=== PATIENT | male | born 1980 | race Caucasian/White ===

== ENCOUNTER 2021-08-31 05:52 | Emergency (ER) | payer SELFPAY ==
[~2021-08-31] VITALS: Ht 170.1 cm; Wt 64.9 kg
[2021-08-31 06:25] LABS: BASO # 0.1 10*3/uL (0.0-0.1); BASO % 0.4 % (0.0-1.0); EOS % 0.1 % (1.0-4.0); HEMATOCRIT 44.8 % (42.0-52.0); LYMPH # 0.8 10*3/uL (1.3-4.4); MEAN CELL VOLUME 93.1 fl (80.0-94.0); MEAN CORPUSCULAR HGB 31.4 pg (27.0-31.0); MEAN CORPUSCULAR HGB CONC 33.7 g/dl (33.0-37.0); MEAN PLATELET VOLUME 10.7 fl (9.6-12.3); MONO % 6.4 % (3.0-9.0); NEUT # 13.3 10*3/uL (2.3-7.9); NEUT % 87.7 % (47.0-73.0); PLATELET COUNT AUTOMATED 245 10*3/uL (130-400); RED BLOOD COUNT 4.81 10*6/uL (4.50-5.90); WHITE BLOOD COUNT 15.1 10*3/uL (4.8-10.8)
[2021-08-31 06:42] LABS: ALKALINE PHOSPHATASE 70 U/L (45-117); BUN 21 mg/dl (7-24); CHLORIDE 104 mmol/L (98-107); LIPASE 41 U/L (73-393); SGOT/AST 19 IU/L (3-35); SGPT/ALT 25 U/L (12-78); SODIUM 137 mmol/L (136-145); TOTAL PROTEIN 7.9 gm/dL (6.4-8.2)
[2021-08-31] MEDS ORDERED: NAPROXEN250 MG PO (08:47)
[2021-08-31] MEDS ORDERED: REGLAN10 M1 PO (08:47)
[2021-08-31] MEDS ORDERED: FLOMAX0.4 MG PO (08:47)
[2021-08-31] MEDS ORDERED: TYLENOL325 M1 PO (08:47)
== END 2021-08-31 09:30 | disposition home or self-care (01) ==
LOC: ED 05:52
PROVIDERS: Emergency Medicine
DX: R10.33 Periumbilical pain (principal); Z88.8 Allergy status to other drugs, medicaments and biological substances